=== PATIENT | female | born 1945 | race Caucasian/White ===

== ENCOUNTER 2016-11-04 13:15 | Emergency (ER) | payer OTHER ==
[~2016-11-04] VITALS: Ht 160 cm; Wt 96.2 kg
--- NOTE | 2016-11-04 14:02 | ED GENERAL ADULT ---
History of Present Illness General Chief Complaint: General Adult Stated Complaint: BLOODY NOSE,HESS,WEAK Source: patient Exam Limitations: no limitations Vital Signs & Intake/Output Vital Signs & Intake/Output Vital Signs Date Time Temp Pulse Resp B/P B/P Pulse O2 O2 Flow FiO2 Mean Ox Delivery Rate 11/04 1555 97.7 75 18 147/65 98 Room Air 11/04 1328 98.0 85 18 166/73 97 Room Air Allergies Coded Allergies: MDX - Amoxicillin (AMOXICILLIN) (HIVES 07/21/12) MDX - Ciprofloxacin (From CIPRO) (HIVES 07/21/12) MDX - Clarithromycin (From BIAXIN) (HIVES 07/21/12) MDX - Gluten (GLUTEN) (GI UPSET 07/21/12) MDX - Latex (LATEX) (HIVES 07/21/12) MDX - Levofloxacin (From LEVAQUIN) (HIVES 07/21/12) MDX - Moxifloxacin (From AVELOX) (HIVES 07/21/12) MDX - Nickel (NICKEL) (HIVES 07/21/12) MDX - Seafood (SEAFOOD) (ANAPHYLAXIS 07/21/12) MDX - Shellfish (SHELLFISH) (ANAPHYLAXIS 07/21/12) Uncoded Allergies: ANIMAL FUR (HIVES 07/21/12) NARCOTIC PAIN MEDICINE (07/21/12) RUBBER (HIVES 07/21/12) Reconcile Medications Prednisone 20 MG TABLET 2 TAB PO DAILY ALLERGIC REACTION Triage Note: PT TO TRIAGE WITH C/O REACTION TO AMOXICILLIN - ITCHY MOUTH LAST NIGHT. ALSO PT HAD AN EPISODE OF EPISTAXIS WITH DIZZINESS AND SHAKINESS FOR 10MIN AT NOON. PT STILL FEELING DIZZY AND WEAK. NO BLEEDING NOTED IN TRIAGE. BP 166/73 IN TRIAGE. PT DENIES CHEST PAIN,SOB. HX HYPOTHYROID. Triage Nurses Notes Reviewed? yes Onset: Gradual Duration: day(s): (1) Timing: no prior history Injury Environment: home Severity: moderate Severity Numbers: 5 Modifying Factors: Improves With: other (TIME). HPI: Patient is a 71-year-old female presenting to the emergency department with chief complaint of itchiness in her mouth and along her tongue that started this morning lasted a few hours and then slowly subsided. Patient reports that she recently was started on amoxicillin for upper respiratory ischio. Started with one dose on Sunday and has taken 2 doses on Sunday and her last dose was last evening around 10 PM. She does report shortness of breath that started this morning. Denies any palpitations. No chest pain. No fevers or chills. Denies recent congestion or cough. She also reports that she has some right-sided neck pain. Pain and on the neck is worse with movement. Denies any injury or trauma. Denies trouble swallowing. No abdominal pain. No change in bowel or bladder habits. Denies change in medication dosing. Patient also reports that she noticed a rash on her neck area that subsided over time this morning. Denies taking anything at home because she did not have any Benadryl to take. (LUIS VÁZQUEZ) Past History Travel History Traveled to [place] past 21 day No Medical History Any Pertinent Medical History? see below for history Endocrine: hypothyroidism Surgical History Surgical History: non-contributory Psychosocial History What is your primary language Sammarinese Tobacco Use: Quit >30 days ago Family History Hx Contributory? No (LUIS VÁZQUEZ) Review of Systems Review of Systems Constitutional: Reports: no symptoms. Comments Review of systems: See HPI, All other systems negative. Constitutional, no chills fever or weight loss HEENT: No visual changes no sore throat no congestion Cardiovascular: No chest pain , orthopnea or ankle swelling Skin, no jaundice Respiratory: No cough sputum or hemoptysis GI: No nausea no vomiting : No dysuria No hematuria Muscle skeletal: no back pain, no neck pain, Neurologic: No numbness no confusion NO HESS Psych: No stress anxiety or depression,. Heme/endocrine: No bruising no bleeding no polyuria or polydipsia Immunology: No splenectomy or history of AIDS (LUIS VÁZQUEZ) Physical Exam Physical Exam General Appearance: well developed/nourished, no apparent distress, alert, awake , comfortable Comments: Well-developed well-nourished person in no acute distress HEENT: Normal EENT exam, extraocular motion intact, no nystagmus. Pupils equally round and reactive to light and accommodation. Nose is atraumatic. External auditory canal and Tympanic membranes clear. Pharynx normal. No swelling or edema. No airway edema appreciated. No intraoral lesions. Neck: Supple, no lymphadenopathy, normal range of motion without pain or tenderness, no meningeal signs. Mild tenderness to palpation over the cervical paraspinal muscles on the right side. Back: Nontender Cardiovascular: Regular rate and rhythms no murmurs rubs or gallops, normal JVP Respiratory: Chest nontender. No respiratory distress.breath sounds clear to auscultation bilaterally Abdomen: Soft, nontender nondistended, no appreciable organomegaly. Normal bowel sounds. No ascites Extremity: No edema, no calf tenderness to palpation, normal and equal pulses. Neuro: Alert oriented x3, motor sensory normal, cranial nerves II through XII grossly intact. Skin: No appreciable rash on exposed skin, skin is warm and dry. Psych: Mood and affect is normal, memory and judgment is normal. Core Measures ACS in differential dx? Yes CVA/TIA Diagnosis: No Severe Sepsis Present: No Septic Shock Present: No (LUIS VÁZQUEZ) Progress Differential Diagnoses I considered the following diagnoses in my evaluation of the patient: Allergic reaction, ACS, electrolyte abnormality, dehydration, CHF Plan of Care: Orders Procedure Date/time Status URINALYSIS 11/04 1413 Complete TROPONIN LEVEL 11/04 1411 Complete COMPREHENSIVE METABOLIC PANEL 11/04 1411 Complete CBC WITHOUT DIFFERENTIAL 11/04 1411 Complete B-TYPE NATRIURETIC PEP (BNP) 11/04 1411 Complete EKG 11/04 1411 Active Laboratory Tests 11/04/16 1433: Urine Color YEL, Urine Clarity CLEAR, Urine pH 7.0, Ur Specific [place] <= 1.005 , Urine Protein NEG, Urine Ketones NEG, Urine Nitrite NEG, Urine Bilirubin NEG, Urine Urobilinogen 0.2, Ur Leukocyte Esterase SMALL H, Ur Microscopic SEDIMENT EXAMINED, Urine RBC RARE, Urine WBC 1-3 H, Ur Epithelial Cells OCCAS, Urine Bacteria RARE H, Urine Hemoglobin NEG, Urine Glucose NEG 11/04/16 1430: Anion Gap 10, Estimated GFR > 60, BUN/Creatinine Ratio 25.0, Glucose 82, Calcium 9.1, Total Bilirubin 0.5, AST 21, ALT 29, Alkaline Phosphatase 90, Troponin I < 0.01, [id number] Pept 151 H, Total Protein 6.8, Albumin 4.1, Globulin 2.7, Albumin/Globulin Ratio 1.5, CBC w Diff NO MAN DIFF REQ, RBC 4.05 L, MCV 90.6, MCH 29.5, RDW 14.7 H, MPV 8.8, Gran % 69.5, Lymphocytes % 21.1, Monocytes % 7.6, Eosinophils % 1.1, Basophils % 0.7, Absolute Granulocytes 5.2, Absolute Lymphocytes 1.6, Absolute Monocytes 0.6, Absolute Eosinophils 0.1, Absolute Basophils 0.1, PUBS MCHC 32.6 L Diagnostic Imaging: Viewed by Me: Radiology Read. Discussed w/RAD: Radiology Read. Initial ED EKG: SINUS RHYTHM AT 78 PER MINUTE Prior EKG: unchanged Comments: 11/04/2016 2:17:46 PM on arrival patient noted to stress, vitals are stable. No wheezing or airway edema appreciated. No rashes. Patient does explain itchiness in the mouth and has been on amoxicillin for the past couple days. This could be allergic reaction. We'll assess EKG, troponin to ensure there is no signs of ACS. Symptoms started early this morning and has been improving. No chest pain or palpitations. 11/04/2016 3:18:44 PM patient will be medicated with IV site Medrol, IV fluids initiated. Patient will be maintained on the medication manager. 11/04/2016 3:57:17 PM patient informed of all lab work results. This was given IV Solu-Medrol. Patient asymptomatic at this time. Patient will be started on prednisone for the next 3 days. Advised to stop amoxicillin. EKG is unchanged. Troponin negative. She'll follow-up with her PCP. Discussed with Pau Martin MD and she agrees with plan. (LUIS VÁZQUEZ) Departure Departure Time of Disposition: 1553 Disposition: HOME OR SELF CARE Condition: Stable Clinical Impression Primary Impression: Allergic reaction Qualifiers: Encounter type: initial encounter Qualified Code: T78.40XA - Allergy, unspecified, initial encounter Referrals: HOLA LAGUNAS,MYRNA Rodriguez (PCP/Family) Additional Instructions: Follow-up with your primary care physician call to make an appointment. Take prednisone as prescribed. Return for worsening symptoms or concerns. Increase fluid intake. Take [id number] Claritin tablet symptoms. Departure Forms: Customer Survey General Discharge Information Prescriptions: Current Visit Scripts Prednisone 2 TAB PO DAILY #6 TAB (LUIS VÁZQUEZ) PA/WATERPROOFER Co-Sign Statement Statement: ED Attending supervision documentation- [X] I saw and evaluated the patient. I have also reviewed all the pertinent lab results and diagnostic results. I agree with the findings and the plan of care as documented in the PA's/WATERPROOFER's documentation. [X] I have reviewed the ED Record and agree with the PA's/WATERPROOFER's documentation. [] Additions or exceptions (if any) to the PAs/WATERPROOFER's note and plan are summarized below: [] (KEYANA LAGUNAS,PAU) Critical Care Note Critical Care Note Critical Care Time: non-applicable (LILLY STANLEY,LUIS)
[2016-11-04 14:50] LABS: ABSOLUTE BASOPHIL COUNT 0.1 /CUMM (0.0-0.2); ABSOLUTE EOSINOPHIL COUNT 0.1 /CUMM (0.0-0.7); ABSOLUTE GRANULOCYTE CT 5.2 /CUMM (1.4-6.5); ABSOLUTE LYMPH COUNT 1.6 /CUMM (1.2-3.4); ABSOLUTE MONOCYTE COUNT 0.6 /CUMM (0.10-0.60); BASOPHIL % 0.7 % (0.0-2.0); EOSINOPHIL % 1.1 % (0-5); GRANULOCYTE % 69.5 % (42.2-75.2); HEMATOCRIT 36.7 % (37-47); MEAN CORPUSCULAR HGB 29.5 PG (27.0-31.0); MEAN CORPUSCULAR HGB CONC 32.6 G/DL (33.0-37.0); MEAN CORPUSCULAR VOLUME 90.6 FL (81.0-99.0); MEAN PLATELET VOLUME 8.8 FL (7.4-10.4); PLATELET COUNT 274 /CUMM (130-400); RBC DISTRIBUTION WIDTH 14.7 % (11.5-14.5); RED BLOOD CELL CT 4.05 /CUMM (4.20-5.40); WHITE BLOOD CELL COUNT 7.4 /CUMM (4.8-10.8)
--- NOTE | 2016-11-04 15:11 | RADIOLOGY REPORT ---
EXAMINATION: CHEST 1 VIEW CLINICAL INFORMATION: Palpitations. COMPARISON: 05/18/2014. TECHNIQUE: An AP view of the chest is provided. FINDINGS: The cardiac silhouette is not enlarged. The mediastinal and hilar contours are unremarkable. There are neither pleural effusions nor pneumothoraces. There are no consolidations. The lungs are hyperinflated. The osseous structures are unremarkable. IMPRESSION: No evidence for acute disease. Lung hyperinflation.
[2016-11-04] MEDS ORDERED: PREDNISONE20 M1 PO (15:54)
[2016-11-04 15:55] VITALS: BP 147/65
== END 2016-11-04 15:57 ==
LOC: ERH 13:15
PROVIDERS: Physician Assistant
DX: T78.40XA Allergy, unspecified, initial encounter (principal)
CPT/HCPCS: 81001; 93005; 93010; 96374; J2930